=== PATIENT | male | born 1980 | race Caucasian/White ===

== ENCOUNTER 2017-12-19 17:03 | Emergency (ER) | payer MEDICARE, OTHER ==
[~2017-12-19] VITALS: Ht 188 cm; Wt 95.1 kg
[~2017-12-19 17:03] MED LIST: AMLO10 PO; DULO20 PO; LAMO150T PO; LATU40TA PO; LISI40TA PO
[2017-12-19 17:11] VITALS: BP 114/65; PULSE 89; RESP 16; TEMP 98.3; O2SAT 97
[2017-12-19] MEDS ORDERED: LAMO200T PO (17:20)
[2017-12-19] MEDS ORDERED: LISI40TA PO (17:20)
[2017-12-19] MEDS ORDERED: CYMB60CA PO (17:20)
--- NOTE | 2017-12-19 17:57 | PD ---
HPI Chief Complaint: Injury Time Seen by Provider: 17:29 Travel History International Travel<30 days: No Contact w/Intl Traveler<30days: No Traveled to known affect area: No History of Present Illness HPI This is a 37-year-old male here for evaluation of right knee pain. He reports he had a mechanical trip and fall falling onto a flexed knee. He has pain and swelling within the knee now. Pain is worse with weightbearing and range of motion. Cellularly distress. Severity is moderate. Denies paresthesia or weakness extremity. No head injury or loss of consciousness when the fell occurred. He is not anticoagulated. [facility] Past Medical History Cardiovascular Problems: Yes (htn on meds) Cerebrovascular Accident: Yes Diabetes: No Diminished Hearing: No Hypertension: Yes Neurologic: Yes (LEFT SIDED PARALASYS) Immunizations Current: Yes Seizures: Yes Tetanus Vaccination: < 5 Years Influenza Vaccination: Yes Past Surgical History Arteriovenous Shunt: Yes Neurologic Surgery: Yes (9 SEPERATE PROCEDURES) Social History Alcohol Use: Yes (BI WEEKLY) Tobacco Use: No Substance Use: Yes (pot) Allergies-Medications (Allergen,Severity, Reaction): Coded Allergies: No Known Allergies (Unverified Adverse Reaction, Unknown, 12/19/17) Reported Meds & Prescriptions Reported Meds & Active Scripts Active Reported Cymbalta DR (Duloxetine HCl) 60 Mg Capdr 90 Mg PO DAILY Lisinopril 40 Mg Tab 40 Mg PO DAILY Lamotrigine 200 Mg Tab 200 Mg PO DAILY Review of Systems Except as stated in HPI: all other systems reviewed are Neg Physical Exam Narrative GENERAL: Alert and well-appearing 37 old male SKIN: Warm and dry. No areas of ecchymosis or abrasions. HEAD: Normocephalic. EYES: No injection or drainage. NECK: Supple. No point spine tenderness. MUSCULOSKELETAL: No cyanosis. Right knee: Mild swelling noted. +TTP over the patella. No deformity noted. Exam is limited due to pain. No laxity. 2+ popliteal, dorsal pedis pulses. Normal sensation. Brisk cap refill. Data Data Last Documented VS Vital Signs Date Time Temp Pulse Resp B/P (MAP) Pulse Ox O2 Delivery O2 Flow Rate FiO2 12/19/17 17:11 98.3 89 16 114/65 (81) 97 Orders Orders Knee, Complete (4vws) (12/19/17 ) [facility] Medical Decision Making Medical Screen Exam Complete: Yes Emergency Medical Condition: Yes Differential Diagnosis Knee sprain, patellar fracture, contusion, meniscal injury Narrative Course 37-year-old male here with right knee pain after he fell onto a flexed knee one day ago. The extremity is neurovascularly intact. No deformity. X-ray right knee: Negative for fracture or dislocation Howie wrap applied to the right knee. Patient is instructed to follow-up with orthopedic Diagnosis Primary Impression: Knee sprain Qualified Codes: S83.91XA - Sprain of unspecified site of right knee, initial encounter Referrals: Orthopedist Additional Instructions: Howie wrap the right knee for support. Ibuprofen as needed for pain. Follow up with primary doctor orthopedic doctor for recheck Scripts Ibuprofen (Ibuprofen) 800 Mg Tab 800 MG PO Q6HR Y for PAIN, #30 TAB 0 Refills Prov: Josie Pinto 12/19/17 Disposition: 01 DISCHARGE HOME Condition: Stable Josie Pinto Dec 19, 2017 17:57
--- NOTE | 2017-12-19 18:27 | RADRPT ---
EXAM DATE/TIME: 12/19/2017 17:45 [place] COMPARISON: No previous studies available for comparison. INDICATIONS : Right medial knee pain post fall. MEDICAL HISTORY : Hypertension. Left sided paralasys, Seizures, Cerebrovascular accident SURGICAL HISTORY : Arteriovenous shunt ENCOUNTER: Initial ACUITY: 2 days PAIN SCORE: 8/10 LOCATION: Right knee FINDINGS: Four view examination of the right knee demonstrates no evidence of fracture or dislocation. Bony mi neralization is normal. The articular surfaces are intact. The suprapatellar soft tissues have a no rmal configuration. CONCLUSION: Unremarkable exam. Williams Montanez MD on December 19, 2017 at 18:24 Board Certified Radiologist. This report was verified electronically.
[2017-12-19] MEDS ORDERED: IBUP1TAB7 PO (18:34)
== END 2017-12-19 18:51 | disposition home or self-care (01) ==
LOC: PHEFT 17:03
DX: S83.91XA Sprain of unspecified site of right knee, initial encounter (principal); I10 Essential (primary) hypertension; W01.0XXA Fall on same level from slipping, tripping and stumbling without subsequent striking against object, initial encounter; Z86.73 Personal history of transient ischemic attack (TIA), and cerebral infarction without residual deficits; Z79.899 Other long term (current) drug therapy
CPT/HCPCS: 73564; 99283